=== PATIENT | female | born 1985 | race Caucasian/White ===

== ENCOUNTER 2016-07-29 08:48 | Emergency (ER) | payer SELFPAY ==
[~2016-07-29] VITALS: Ht 157.5 cm; Wt 62.5 kg
[2016-07-29 09:02] VITALS: Ht 157.5 cm; Wt 62.5 kg
[2016-07-29 09:49] LABS: URINE BLOOD (Dip) POC Trace-lysed (NEGATIVE)
--- NOTE | 2016-07-29 12:08 | RADRPT ---
PROCEDURE: US Pelvis CLINICAL INDICATION: left pelvic pain TECHNIQUE: Multiple sonographic images of the pelvis were obtained utilizing a transabdominal and endovaginal technique. The images were reviewed on a PACS workstation. COMPARISON: None. LMP: 07/11/2016 FINDINGS: The uterus measures 10.3 x 5.3 x 6.2 cm. The endometrial echo complex measures 9 mm in thickness. No discrete lesion is seen. The right ovary measures 3.5 x 2.1 x 2.2 cm. The left ovary measures 4.1 x 2.7 x 2.9 cm. There is no rmal vascular flow in both ovaries. There is a 2.3 cm complex cystic lesion in the left ovary with low level internal echoes which is li wilbert a hemorrhagic or corpus luteal cyst. No significant pelvic free fluid is identified. IMPRESSION: 2.3 cm complex cystic lesion in the left ovary is likely a hemorrhagic or corpus luteal cyst. Otherwise, unremarkable pelvic ultrasound. RPTAT: EE Physician Amena Date Time Electronically viewed and signed by Physician Amena on 07/29/2016 12:08 /
[2016-07-29] MEDS ORDERED: NAPR-260 PO (12:20)
--- NOTE | 2016-07-29 15:36 | ERD ---
DATE OF SERVICE: 07/29/2016 HISTORY OF PRESENT ILLNESS: The patient is a 30-year-old female complaining of dysuria and left-shelley ed flank pain. The patient states that she has had these symptoms for the last 3 days. She has bee n diagnosed with ovarian cyst in the past and she feels this may be associated, but is unsure. She has had no hematuria. Normal bowel movements, last bowel movement was this morning. No vomiting. Positive nausea. No fevers. Denies medication use and no blood in stool. She is not with any new sexual partners. No history of STDs. No vaginal discharge. MEDICAL HISTORY: Diverticulitis. ALLERGIES TO MEDICATIONS: DENIES. SURGICAL HISTORY: C-sections. SOCIAL HISTORY: Denies. REVIEW OF SYSTEMS: A 12-point review of systems was done. Refer to HPI for positives, all other sy stems negative. PHYSICAL EXAMINATION VITAL SIGNS: Temperature is 97.3, pulse 83, blood pressure is 120/73, respiratory rate 16, O2 satur ation 99% on room air. Pain intensity 9/10. GENERAL: The patient is well-appearing, well-nourished, no acute distress. HEENT: Atraumatic. Conjunctivae are pink. Pupils equal, round, and reactive to light. There is no s cleral icterus. Tympanic membranes clear bilaterally. Oropharynx clear. No nystagmus or photophobia . CHEST: Clear to auscultation bilaterally. There are no rales, wheezes or rhonchi. HEART: Regular rate and rhythm. No murmurs, clicks, rubs or gallops. No S3 or S4. ABDOMEN: Normoactive bowel sounds heard on auscultation. No distention, no organomegaly. The bozena ent has mild tenderness to palpation in the lower pelvis on the left side. BACK: No midline or flank tenderness. SKIN: There is no apparent rash or petechia. The skin is warm and dry. EMERGENCY ROOM COURSE: The patient had a urine dip checked in the ER, showed negative leukocytes, n egative nitrites, trace blood, negative ketones, negative glucose, negative protein. The patient lomax d a pelvic ultrasound which showed a 2.3 cm complex cystic lesion in the left ovary, likely hemorrha gic or corpus luteal cyst, otherwise unremarkable pelvic ultrasound. DIAGNOSIS: Ovarian cyst. MEDICAL DECISION MAKING: I have low suspicion for ovarian torsion. Low suspicion for tubo-ovarian abscess. Low suspicion for UTI. Low suspicion for abdominal emergency. The patient may be experie ncing pain secondary to ovarian cyst. DISCHARGE: The patient is discharged stable. The patient given a prescription for naproxen and zackery d to follow up with primary care within 1 to 2 days for reevaluation. The patient was told if sympt oms progress or worsen, to return to the ER. All other questions answered at time of discharge. [place] allison summary given at the time of departure. The patient understood and complied with plan. Dictated By: MARILIN MORSE for VERONIQUE CARABALLO/JAMSHID Conf#: [id number] DID#: [id number]
== END 2016-07-29 12:31 | disposition home or self-care (01) ==
LOC: FTE 08:48
DX: N83.202 Unspecified ovarian cyst, left side (principal); R10.2 Pelvic and perineal pain
CPT/HCPCS: 76830; 76856; 81003

== ENCOUNTER 2017-03-26 00:29 | Emergency (ER) | payer MEDICAID, OTHER ==
[~2017-03-26] VITALS: Ht 162.6 cm; Wt 64.0 kg
[~2017-03-26 00:29] MED LIST: ACET500C5 PO; NAPR-260 PO; ONDA4TAB8 PO
[2017-03-26 00:33] VITALS: Ht 162.6 cm; Wt 64.0 kg
[2017-03-26] MEDS ORDERED: ONDANSETRON (ODT) 4 MG TAB ODT STA (01:39)
[2017-03-26] MEDS ORDERED: HYDROCODONE/APAP (5/325) TAB PO ONE (02:00)
--- NOTE | 2017-03-26 04:34 | RADRPT ---
PROCEDURE: CT of the abdomen and pelvis without contrast CLINICAL INDICATION: Abdominal pain. TECHNIQUE: Spiral CT images through the abdomen and pelvis without the use of oral and without the use of intravenous contrast. The administered radiation dose is CTDI 6.55 and DLP 351.07. One or m ore of the following dose reduction techniques were used: automated exposure control, adjustment of the mA and/or kV according to patient size, or use of iterative reconstruction technique. COMPARISON: 01/12/2017 FINDINGS: The study is limited by lack of intravenous contrast. Lower thorax: Slight dependent atalectasis of the lung bases is seen.. Bilateral breast implants are seen. Liver: The liver is unremarkable in appearance. Biliary: The gallbladder is unremarkable.. No biliary ductal dilatation is seen. Pancreas: Stable mild diffuse prominence in size but no focal abnormality. No focal mass or inflamma tory process. Spleen: The spleen is unremarkable in appearance Adrenal glands: Unremarkable in appearance. No focal nodule.. Genitourinary: No hydronephrosis or renal calculi are seen.. The bladder is unremarkable in appearan ce.. Gastrointestinal Tract: There is no evidence for bowel obstruction, free air, or abscess. The appen ankit is unremarkable in appearance. Colonic diverticulosis without evidence of diverticulitis. Lymph nodes: No adenopathy is seen... Vascular structures: The aorta and mesenteric vessels are unremarkable.. Peritoneal cavity: Unremarkable mesentery and peritoneum.. No mass, edema, or ascites. Reproductive Organs: Unremarkable in appearance.. Musculoskeletal: No bony abnormality is seen.. IMPRESSION: Diverticulosis without evidence of diverticulitis.. RPTAT: HLBE Physician Bentley Date Time Electronically viewed and signed by Physician Bentley on 03/26/2017 04:34 LE/
[2017-03-26] MEDS ORDERED: ONDA4TAB14 PO (04:47)
[2017-03-26 04:57] VITALS: BP 133/90; PULSE 92; RESP 16
--- NOTE | 2017-03-26 05:41 | ERD ---
ER Documentation Chief Complaint Chief Complaint N/V, diarrhea, headache x 1 day HPI This is a 31-year-old female, with past medical history for diverticulitis, presenting to emergency department with nausea, vomiting, diarrhea and abdominal pain 7 days. Patient denies fevers or chills. Emesis is nonbloody and nonbilious. Patient states she has vomiting every time she tries to eat. Patient states she is having multiple loose bowel movements per day. Patient denies black or tarry stools. No melena. Patient has been taking Kaopectate as needed. No dysuria, hematuria, urinary frequency or urgency. ROS All systems reviewed and are negative except as per history of present illness. Medications Home Meds Active Scripts Ondansetron (Ondansetron Odt) 4 Mg Tab.rapdis, 4 MG PO Q6H Y for NAUSEA AND/OR VOMITING, #10 TAB Prov:MARIA R LOZANO NP 03/26/17 Ondansetron Hcl* (Zofran*) 4 Mg Tablet, 4 MG PO Q6H for NAUSEA AND/OR VOMITING, #30 TAB Prov:JOSE HUFF PA-C 01/12/17 Acetaminophen* (Tylophen*) 500 Mg Capsule, 1 CAP PO Q6H Y for PAIN AND OR ELEVATED TEMP, #30 CAP Prov:JOSE HUFF PA-C 01/12/17 Naproxen* (Naprosyn*) 500 Mg Tablet, 500 MG PO BID Y for PAIN AND/OR INFLAMMATION, #30 TAB Prov:BEHZAD MATHUR PA-C 07/29/16 Allergies Allergies: Coded Allergies: No Known Drug Allergies (Verified Allergy, Unknown, 01/11/17) PMhx/Soc History of Surgery: Yes (C SECTION x's 2, tummy tuck '13) Anesthesia Reaction: No Hx Neurological Disorder: No Hx Respiratory Disorders: No Hx Cardiac Disorders: No Hx Psychiatric Problems: No Hx Miscellaneous Medical Probl: Yes (diverticulosis since age 15, chronic narcotic use) Hx Alcohol Use: Yes (occasionally) Hx Substance Use: No Hx Tobacco Use: Yes Smoking Status: Former smoker Physical Exam Vitals Vital Signs Date Time Temp Pulse Resp B/P Pulse Ox O2 Delivery O2 Flow Rate FiO2 03/26/17 04:57 92 16 133/90 98 Room Air 03/26/17 00:33 98.3 88 20 136/81 0 Physical Exam Const: Alert Head: Atraumatic Eyes: Normal Conjunctiva ENT: Normal External Ears, Nose and Mouth. Neck: Full range of motion..~ No meningismus. Resp: Clear to auscultation bilaterally Cardio: Regular rate and rhythm, no murmurs Abd: Soft, non tender, non distended. Normal bowel sounds. No rebound tenderness. No tenderness at McBurney's point. Negative Caldera sign. Skin: No petechiae or rashes Back: No midline or flank tenderness Ext: No cyanosis, or edema Neur: Awake and alert Psych: Normal Mood and Affect Result Diagram: 03/26/1715403/26/17154 Results 24 hrs Laboratory Tests Test 03/26/17 01:55 03/26/17 02:10 White Blood Count 6.210^3/ul Red Blood Count 4.2210^6/ul Hemoglobin 12.1g/dl Hematocrit 37.9% Mean Corpuscular Volume 89.8fl Mean Corpuscular Hemoglobin 28.7pg Mean Corpuscular Hemoglobin Concent 31.9g/dl Red Cell Distribution Width 13.3% Platelet Count 86675^3/UL Mean Platelet Volume 9.2fl Neutrophils % 70.5% Lymphocytes % 20.6% Monocytes % 7.8% Eosinophils % 0.5% Basophils % 0.3% Nucleated Red Blood Cells % 0.0/100WBC Neutrophils # 4.410^3/ul Lymphocytes # 1.310^3/ul Monocytes # 0.510^3/ul Eosinophils # 0.010^3/ul Basophils # 0.010^3/ul Nucleated Red Blood Cells # 0.010^3/ul Sodium Level 143mmol/L Potassium Level 4.1mmol/L Chloride Level 103mmol/L Carbon Dioxide Level 26mmol/L Anion Gap 18 Blood Urea Nitrogen 11mg/dl Creatinine 0.68mg/dl Glucose Level 112mg/dl Calcium Level 9.9mg/dl Total Bilirubin 0.2mg/dl Direct Bilirubin 0.00mg/dl Indirect Bilirubin 0.2mg/dl Aspartate Amino Transf (AST/SGOT) 24IU/L Alanine Aminotransferase (ALT/SGPT) 33IU/L Alkaline Phosphatase 79IU/L Total Protein 8.2g/dl Albumin 5.2g/dl Globulin 3.00g/dl Albumin/Globulin Ratio 1.73 Lipase 66U/L Beta HCG, Quantitative < 2.4mIU/ml Bedside Urine pH (LAB) 7.0 Bedside Urine Protein (LAB) 1+ Bedside Urine Glucose (UA) Negative Bedside Urine Ketones (LAB) 1+ Bedside Urine Blood Negative Bedside Urine Nitrite (LAB) Negative Bedside Urine Leukocyte Esterase (L Trace Current Medications Medications (Trade) Dose Ordered Sig/Nat Route PRN Reason Start Time Stop Time Status Last Admin Dose Admin Acetaminophen/ Hydrocodone Bitart (Nebo (5/325)) 1 tab ONCE ONCE PO 03/26/17 02:00 03/26/17 02:01 DC 03/26/17 02:24 Ondansetron HCl (Zofran Odt) 4 mg ONCE STAT ODT 03/26/17 01:39 03/26/17 01:43 DC 03/26/17 02:24 Procedures/[place] [id number] Radiology Main Line: [phone] DIAGNOSTIC IMAGING REPORT Patient: TACO SEGURA : 1985 Age: 31 Sex: F MR #: [id number] DOS: 03/26/17 0139 Ordering MD: MARIA R HUNT NP Location: [facility] Room/Bed: PROCEDURE: CT of the abdomen and pelvis without contrast CLINICAL INDICATION: Abdominal pain. TECHNIQUE: Spiral CT images through the abdomen and pelvis without the use of oral and without the use of intravenous contrast. The administered radiation dose is CTDI 6.55 and DLP 351.07. One or more of the following dose reduction techniques were used: automated exposure control, adjustment of the mA and/or kV according to patient size, or use of iterative reconstruction technique. COMPARISON: 01/12/2017 FINDINGS: The study is limited by lack of intravenous contrast. Lower thorax: Slight dependent atalectasis of the lung bases is seen.. Bilateral breast implants are seen. Liver: The liver is unremarkable in appearance. Biliary: The gallbladder is unremarkable.. No biliary ductal dilatation is seen. Pancreas: Stable mild diffuse prominence in size but no focal abnormality. No focal mass or inflammatory process. Spleen: The spleen is unremarkable in appearance Adrenal glands: Unremarkable in appearance. No focal nodule.. Genitourinary: No hydronephrosis or renal calculi are seen.. The bladder is unremarkable in appearance.. Gastrointestinal Tract: There is no evidence for bowel obstruction, free air, or abscess. The appendix is unremarkable in appearance. Colonic diverticulosis without evidence of diverticulitis. Lymph nodes: No adenopathy is seen... Vascular structures: The aorta and mesenteric vessels are unremarkable.. Peritoneal cavity: Unremarkable mesentery and peritoneum.. No mass, edema, or ascites. Reproductive Organs: Unremarkable in appearance.. Musculoskeletal: No bony abnormality is seen.. IMPRESSION: Diverticulosis without evidence of diverticulitis. MDM: This is a 31-year-old female presenting to emergency department with nausea , vomiting, diarrhea and headache 7 days. Labs and urine collected per staff physician. CBC shows no significant anemia or infection. CMP shows no significant electrolyte imbalance. Lipase is normal. Liver enzymes are normal. Bilirubin is normal. Glucose is normal. Creatinine and BUN are normal. Beta-hCG is negative. Urine dip shows trace leukocyte esterase, 1+ ketones and 1+ protein. CT abdomen and pelvis reviewed by radiologist as diverticulosis without evidence of diverticulitis. Upon reassessment, patient appears alert and stable. Patient appears in no acute distress. Patient is nontoxic-appearing. Vital signs are stable. Differential diagnosis includes but not limited to acute appendicitis, diverticulitis, diverticulosis, bowel obstruction, constipation, infectious colitis, irritable bowel syndrome, inflammatory bowel disease, viral gastroenteritis, abdominal aortic aneurysm, food intolerance, celiac disease, UTI, pyelonephritis, nephrolithiasis, acute urinary retention or colorectal cancer. I doubt any emergent conditions such as appendicitis, diverticulitis, bowel obstruction, abdominal aortic aneurysm at this time due to normal vital signs and normal lab results. Patient is appropriate for outpatient management. Patient given prescription for Zofran. Instructed patient to follow-up with primary care provider in the next 2-3 days for reassessment and additional management. Return to ED for any high fever, chest pain, difficulty breathing, shortness breath, wheezing, vomiting, diarrhea, abdominal pain or any new or worsening symptoms. Patient verbalizes understanding. All questions answered at discharge. Disclaimer: Inadvertent spelling and grammatical errors are likely due to EHR/ dictation software use and do not reflect on the overall quality of patient care. Also, please note that the electronic time recorded on this note does not necessarily reflect the actual time of the patient encounter. Departure Diagnosis: Primary Impression: Diverticulosis Diverticulosis site: unspecified location Condition: Stable Patient Instructions: Diverticulosis Referrals: [facility] YOU HAVE RECEIVED A MEDICAL SCREENING EXAM AND THE RESULTS INDICATE THAT YOU DO NOT HAVE A CONDITION THAT REQUIRES URGENT TREATMENT IN THE EMERGENCY DEPARTMENT. FURTHER EVALUATION AND TREATMENT OF YOUR CONDITION CAN WAIT UNTIL YOU ARE SEEN IN YOUR DOCTORS OFFICE WITHIN THE NEXT 1-2 DAYS. IT IS YOUR RESPONSIBILITY TO MAKE AN APPOINTMENT FOR FOLOW-UP CARE. IF YOU HAVE A PRIMARY DOCTOR --you should call your primary doctor and schedule an appointment IF YOU DO NOT HAVE A PRIMARY DOCTOR YOU CAN CALL OUR PHYSICIAN REFERRAL HOTLINE AT IF YOU CAN NOT AFFORD TO SEE A PHYSICIAN YOU CAN CHOSE FROM THE FOLLOWING [facility] [address] [facility]. [facility] [address] [facility] [facility] [address] [facility] [address] [facility] [address] [facility]. [facility] [address] [facility]. [facility] YOU HAVE RECEIVED A MEDICAL SCREENING EXAM AND THE RESULTS INDICATE THAT YOU DO NOT HAVE A CONDITION THAT REQUIRES URGENT TREATMENT IN THE EMERGENCY DEPARTMENT. FURTHER EVALUATION AND TREATMENT OF YOUR CONDITION CAN WAIT UNTIL YOU ARE SEEN IN YOUR DOCTORS OFFICE WITHIN THE NEXT 1-2 DAYS. IT IS YOUR RESPONSIBILITY TO MAKE AN APPOINTMENT FOR FOLOW-UP CARE. IF YOU HAVE A PRIMARY DOCTOR --you should call your primary doctor and schedule and appointment IF YOU DO NOT HAVE A PRIMARY DOCTOR YOU CAN CALL OUR PHYSICIAN REFERRAL HOTLINE AT . IF YOU CAN NOT AFFORD TO SEE A PHYSICIAN YOU CAN CHOSE FROM THE FOLLOWING [facility] INSTITUTIONS: [facility] [address] [place] [address] [facility] [address] [place] [address] [facility] + [facility] [address] [place] [address] Additional Instructions: Call your primary care doctor TOMORROW for an appointment during the next 2-3 days.See the doctor sooner or return here if your condition worsens before your appointment time. Return to ED for any high fever, chest pain, difficulty breathing, shortness breath, wheezing, vomiting, diarrhea, abdominal pain or any new or worsening symptoms. MARIA R LOZANO NP Mar 26, 2017 05:41
--- NOTE | 2017-03-26 05:41 | ERD ---
ER Documentation Chief Complaint Chief Complaint N/V, diarrhea, headache x 1 day HPI This is a 31-year-old female, with past medical history for diverticulitis, presenting to emergency department with nausea, vomiting, diarrhea and abdominal pain 7 days. Patient denies fevers or chills. Emesis is nonbloody and nonbilious. Patient states she has vomiting every time she tries to eat. Patient states she is having multiple loose bowel movements per day. Patient denies black or tarry stools. No melena. Patient has been taking Kaopectate as needed. No dysuria, hematuria, urinary frequency or urgency. ROS All systems reviewed and are negative except as per history of present illness. Medications Home Meds Active Scripts Ondansetron (Ondansetron Odt) 4 Mg Tab.rapdis, 4 MG PO Q6H Y for NAUSEA AND/OR VOMITING, #10 TAB Prov:MARIA R LOZANO NP 03/26/17 Ondansetron Hcl* (Zofran*) 4 Mg Tablet, 4 MG PO Q6H for NAUSEA AND/OR VOMITING, #30 TAB Prov:JOSE HUFF PA-C 01/12/17 Acetaminophen* (Tylophen*) 500 Mg Capsule, 1 CAP PO Q6H Y for PAIN AND OR ELEVATED TEMP, #30 CAP Prov:JOSE HUFF PA-C 01/12/17 Naproxen* (Naprosyn*) 500 Mg Tablet, 500 MG PO BID Y for PAIN AND/OR INFLAMMATION, #30 TAB Prov:BEHZAD MATHUR PA-C 07/29/16 Allergies Allergies: Coded Allergies: No Known Drug Allergies (Verified Allergy, Unknown, 01/11/17) PMhx/Soc History of Surgery: Yes (C SECTION x's 2, tummy tuck '13) Anesthesia Reaction: No Hx Neurological Disorder: No Hx Respiratory Disorders: No Hx Cardiac Disorders: No Hx Psychiatric Problems: No Hx Miscellaneous Medical Probl: Yes (diverticulosis since age 15, chronic narcotic use) Hx Alcohol Use: Yes (occasionally) Hx Substance Use: No Hx Tobacco Use: Yes Smoking Status: Former smoker Physical Exam Vitals Vital Signs Date Time Temp Pulse Resp B/P Pulse Ox O2 Delivery O2 Flow Rate FiO2 03/26/17 04:57 92 16 133/90 98 Room Air 03/26/17 00:33 98.3 88 20 136/81 0 Physical Exam Const: Alert Head: Atraumatic Eyes: Normal Conjunctiva ENT: Normal External Ears, Nose and Mouth. Neck: Full range of motion..~ No meningismus. Resp: Clear to auscultation bilaterally Cardio: Regular rate and rhythm, no murmurs Abd: Soft, non tender, non distended. Normal bowel sounds. No rebound tenderness. No tenderness at McBurney's point. Negative Caldera sign. Skin: No petechiae or rashes Back: No midline or flank tenderness Ext: No cyanosis, or edema Neur: Awake and alert Psych: Normal Mood and Affect Result Diagram: 03/26/1715403/26/17154 Results 24 hrs Laboratory Tests Test 03/26/17 01:55 03/26/17 02:10 White Blood Count 6.210^3/ul Red Blood Count 4.2210^6/ul Hemoglobin 12.1g/dl Hematocrit 37.9% Mean Corpuscular Volume 89.8fl Mean Corpuscular Hemoglobin 28.7pg Mean Corpuscular Hemoglobin Concent 31.9g/dl Red Cell Distribution Width 13.3% Platelet Count 49780^3/UL Mean Platelet Volume 9.2fl Neutrophils % 70.5% Lymphocytes % 20.6% Monocytes % 7.8% Eosinophils % 0.5% Basophils % 0.3% Nucleated Red Blood Cells % 0.0/100WBC Neutrophils # 4.410^3/ul Lymphocytes # 1.310^3/ul Monocytes # 0.510^3/ul Eosinophils # 0.010^3/ul Basophils # 0.010^3/ul Nucleated Red Blood Cells # 0.010^3/ul Sodium Level 143mmol/L Potassium Level 4.1mmol/L Chloride Level 103mmol/L Carbon Dioxide Level 26mmol/L Anion Gap 18 Blood Urea Nitrogen 11mg/dl Creatinine 0.68mg/dl Glucose Level 112mg/dl Calcium Level 9.9mg/dl Total Bilirubin 0.2mg/dl Direct Bilirubin 0.00mg/dl Indirect Bilirubin 0.2mg/dl Aspartate Amino Transf (AST/SGOT) 24IU/L Alanine Aminotransferase (ALT/SGPT) 33IU/L Alkaline Phosphatase 79IU/L Total Protein 8.2g/dl Albumin 5.2g/dl Globulin 3.00g/dl Albumin/Globulin Ratio 1.73 Lipase 66U/L Beta HCG, Quantitative < 2.4mIU/ml Bedside Urine pH (LAB) 7.0 Bedside Urine Protein (LAB) 1+ Bedside Urine Glucose (UA) Negative Bedside Urine Ketones (LAB) 1+ Bedside Urine Blood Negative Bedside Urine Nitrite (LAB) Negative Bedside Urine Leukocyte Esterase (L Trace Current Medications Medications (Trade) Dose Ordered Sig/Nat Route PRN Reason Start Time Stop Time Status Last Admin Dose Admin Acetaminophen/ Hydrocodone Bitart (Norman (5/325)) 1 tab ONCE ONCE PO 03/26/17 02:00 03/26/17 02:01 DC 03/26/17 02:24 Ondansetron HCl (Zofran Odt) 4 mg ONCE STAT ODT 03/26/17 01:39 03/26/17 01:43 DC 03/26/17 02:24 Procedures/[place] [id number] Radiology Main Line: [phone] DIAGNOSTIC IMAGING REPORT Patient: TACO SEGURA : 1985 Age: 31 Sex: F MR #: [id number] DOS: 03/26/17 0139 Ordering MD: MARIA R HUNT NP Location: [facility] Room/Bed: PROCEDURE: CT of the abdomen and pelvis without contrast CLINICAL INDICATION: Abdominal pain. TECHNIQUE: Spiral CT images through the abdomen and pelvis without the use of oral and without the use of intravenous contrast. The administered radiation dose is CTDI 6.55 and DLP 351.07. One or more of the following dose reduction techniques were used: automated exposure control, adjustment of the mA and/or kV according to patient size, or use of iterative reconstruction technique. COMPARISON: 01/12/2017 FINDINGS: The study is limited by lack of intravenous contrast. Lower thorax: Slight dependent atalectasis of the lung bases is seen.. Bilateral breast implants are seen. Liver: The liver is unremarkable in appearance. Biliary: The gallbladder is unremarkable.. No biliary ductal dilatation is seen. Pancreas: Stable mild diffuse prominence in size but no focal abnormality. No focal mass or inflammatory process. Spleen: The spleen is unremarkable in appearance Adrenal glands: Unremarkable in appearance. No focal nodule.. Genitourinary: No hydronephrosis or renal calculi are seen.. The bladder is unremarkable in appearance.. Gastrointestinal Tract: There is no evidence for bowel obstruction, free air, or abscess. The appendix is unremarkable in appearance. Colonic diverticulosis without evidence of diverticulitis. Lymph nodes: No adenopathy is seen... Vascular structures: The aorta and mesenteric vessels are unremarkable.. Peritoneal cavity: Unremarkable mesentery and peritoneum.. No mass, edema, or ascites. Reproductive Organs: Unremarkable in appearance.. Musculoskeletal: No bony abnormality is seen.. IMPRESSION: Diverticulosis without evidence of diverticulitis. MDM: This is a 31-year-old female presenting to emergency department with nausea , vomiting, diarrhea and headache 7 days. Labs and urine collected per bar staff. CBC shows no significant anemia or infection. CMP shows no significant electrolyte imbalance. Lipase is normal. Liver enzymes are normal. Bilirubin is normal. Glucose is normal. Creatinine and BUN are normal. Beta-hCG is negative. Urine dip shows trace leukocyte esterase, 1+ ketones and 1+ protein. CT abdomen and pelvis reviewed by radiologist as diverticulosis without evidence of diverticulitis. Upon reassessment, patient appears alert and stable. Patient appears in no acute distress. Patient is nontoxic-appearing. Vital signs are stable. Differential diagnosis includes but not limited to acute appendicitis, diverticulitis, diverticulosis, bowel obstruction, constipation, infectious colitis, irritable bowel syndrome, inflammatory bowel disease, viral gastroenteritis, abdominal aortic aneurysm, food intolerance, celiac disease, UTI, pyelonephritis, nephrolithiasis, acute urinary retention or colorectal cancer. I doubt any emergent conditions such as appendicitis, diverticulitis, bowel obstruction, abdominal aortic aneurysm at this time due to normal vital signs and normal lab results. Patient is appropriate for outpatient management. Patient given prescription for Zofran. Instructed patient to follow-up with primary care provider in the next 2-3 days for reassessment and additional management. Return to ED for any high fever, chest pain, difficulty breathing, shortness breath, wheezing, vomiting, diarrhea, abdominal pain or any new or worsening symptoms. Patient verbalizes understanding. All questions answered at discharge. Disclaimer: Inadvertent spelling and grammatical errors are likely due to EHR/ dictation software use and do not reflect on the overall quality of patient care. Also, please note that the electronic time recorded on this note does not necessarily reflect the actual time of the patient encounter. Departure Diagnosis: Primary Impression: Diverticulosis Diverticulosis site: unspecified location Condition: Stable Patient Instructions: Diverticulosis Referrals: [facility] YOU HAVE RECEIVED A MEDICAL SCREENING EXAM AND THE RESULTS INDICATE THAT YOU DO NOT HAVE A CONDITION THAT REQUIRES URGENT TREATMENT IN THE EMERGENCY DEPARTMENT. FURTHER EVALUATION AND TREATMENT OF YOUR CONDITION CAN WAIT UNTIL YOU ARE SEEN IN YOUR DOCTORS OFFICE WITHIN THE NEXT 1-2 DAYS. IT IS YOUR RESPONSIBILITY TO MAKE AN APPOINTMENT FOR FOLOW-UP CARE. IF YOU HAVE A PRIMARY DOCTOR --you should call your primary doctor and schedule an appointment IF YOU DO NOT HAVE A PRIMARY DOCTOR YOU CAN CALL OUR PHYSICIAN REFERRAL HOTLINE AT IF YOU CAN NOT AFFORD TO SEE A PHYSICIAN YOU CAN CHOSE FROM THE FOLLOWING [facility] [address] [facility]. [facility] [address] [facility]. [facility] [address] [facility] [facility] [address] [facility] [address] [facility]. [facility] [address] [facility] [facility] YOU HAVE RECEIVED A MEDICAL SCREENING EXAM AND THE RESULTS INDICATE THAT YOU DO NOT HAVE A CONDITION THAT REQUIRES URGENT TREATMENT IN THE EMERGENCY DEPARTMENT. FURTHER EVALUATION AND TREATMENT OF YOUR CONDITION CAN WAIT UNTIL YOU ARE SEEN IN YOUR DOCTORS OFFICE WITHIN THE NEXT 1-2 DAYS. IT IS YOUR RESPONSIBILITY TO MAKE AN APPOINTMENT FOR FOLOW-UP CARE. IF YOU HAVE A PRIMARY DOCTOR --you should call your primary doctor and schedule and appointment IF YOU DO NOT HAVE A PRIMARY DOCTOR YOU CAN CALL OUR PHYSICIAN REFERRAL HOTLINE AT . IF YOU CAN NOT AFFORD TO SEE A PHYSICIAN YOU CAN CHOSE FROM THE FOLLOWING [facility] INSTITUTIONS: [facility] [address] [place] [address] [facility] [address] [place] [address] [facility] + [facility] [address] [place] [address] Additional Instructions: Call your primary care doctor TOMORROW for an appointment during the next 2-3 days.See the doctor sooner or return here if your condition worsens before your appointment time. Return to ED for any high fever, chest pain, difficulty breathing, shortness breath, wheezing, vomiting, diarrhea, abdominal pain or any new or worsening symptoms. MARIA R LOZANO NP Mar 26, 2017 05:41
--- NOTE | 2017-03-26 05:41 | ERD ---
ER Documentation Chief Complaint Chief Complaint N/V, diarrhea, headache x 1 day HPI This is a 31-year-old female, with past medical history for diverticulitis, presenting to emergency department with nausea, vomiting, diarrhea and abdominal pain 7 days. Patient denies fevers or chills. Emesis is nonbloody and nonbilious. Patient states she has vomiting every time she tries to eat. Patient states she is having multiple loose bowel movements per day. Patient denies black or tarry stools. No melena. Patient has been taking Kaopectate as needed. No dysuria, hematuria, urinary frequency or urgency. ROS All systems reviewed and are negative except as per history of present illness. Medications Home Meds Active Scripts Ondansetron (Ondansetron Odt) 4 Mg Tab.rapdis, 4 MG PO Q6H Y for NAUSEA AND/OR VOMITING, #10 TAB Prov:MARIA R LOZANO NP 03/26/17 Ondansetron Hcl* (Zofran*) 4 Mg Tablet, 4 MG PO Q6H for NAUSEA AND/OR VOMITING, #30 TAB Prov:JOSE HUFF PA-C 01/12/17 Acetaminophen* (Tylophen*) 500 Mg Capsule, 1 CAP PO Q6H Y for PAIN AND OR ELEVATED TEMP, #30 CAP Prov:JOSE HUFF PA-C 01/12/17 Naproxen* (Naprosyn*) 500 Mg Tablet, 500 MG PO BID Y for PAIN AND/OR INFLAMMATION, #30 TAB Prov:BEHZAD MATHUR PA-C 07/29/16 Allergies Allergies: Coded Allergies: No Known Drug Allergies (Verified Allergy, Unknown, 01/11/17) PMhx/Soc History of Surgery: Yes (C SECTION x's 2, tummy tuck '13) Anesthesia Reaction: No Hx Neurological Disorder: No Hx Respiratory Disorders: No Hx Cardiac Disorders: No Hx Psychiatric Problems: No Hx Miscellaneous Medical Probl: Yes (diverticulosis since age 15, chronic narcotic use) Hx Alcohol Use: Yes (occasionally) Hx Substance Use: No Hx Tobacco Use: Yes Smoking Status: Former smoker Physical Exam Vitals Vital Signs Date Time Temp Pulse Resp B/P Pulse Ox O2 Delivery O2 Flow Rate FiO2 03/26/17 04:57 92 16 133/90 98 Room Air 03/26/17 00:33 98.3 88 20 136/81 0 Physical Exam Const: Alert Head: Atraumatic Eyes: Normal Conjunctiva ENT: Normal External Ears, Nose and Mouth. Neck: Full range of motion..~ No meningismus. Resp: Clear to auscultation bilaterally Cardio: Regular rate and rhythm, no murmurs Abd: Soft, non tender, non distended. Normal bowel sounds. No rebound tenderness. No tenderness at McBurney's point. Negative Caldera sign. Skin: No petechiae or rashes Back: No midline or flank tenderness Ext: No cyanosis, or edema Neur: Awake and alert Psych: Normal Mood and Affect Result Diagram: 03/26/1715403/26/17154 Results 24 hrs Laboratory Tests Test 03/26/17 01:55 03/26/17 02:10 White Blood Count 6.210^3/ul Red Blood Count 4.2210^6/ul Hemoglobin 12.1g/dl Hematocrit 37.9% Mean Corpuscular Volume 89.8fl Mean Corpuscular Hemoglobin 28.7pg Mean Corpuscular Hemoglobin Concent 31.9g/dl Red Cell Distribution Width 13.3% Platelet Count 35274^3/UL Mean Platelet Volume 9.2fl Neutrophils % 70.5% Lymphocytes % 20.6% Monocytes % 7.8% Eosinophils % 0.5% Basophils % 0.3% Nucleated Red Blood Cells % 0.0/100WBC Neutrophils # 4.410^3/ul Lymphocytes # 1.310^3/ul Monocytes # 0.510^3/ul Eosinophils # 0.010^3/ul Basophils # 0.010^3/ul Nucleated Red Blood Cells # 0.010^3/ul Sodium Level 143mmol/L Potassium Level 4.1mmol/L Chloride Level 103mmol/L Carbon Dioxide Level 26mmol/L Anion Gap 18 Blood Urea Nitrogen 11mg/dl Creatinine 0.68mg/dl Glucose Level 112mg/dl Calcium Level 9.9mg/dl Total Bilirubin 0.2mg/dl Direct Bilirubin 0.00mg/dl Indirect Bilirubin 0.2mg/dl Aspartate Amino Transf (AST/SGOT) 24IU/L Alanine Aminotransferase (ALT/SGPT) 33IU/L Alkaline Phosphatase 79IU/L Total Protein 8.2g/dl Albumin 5.2g/dl Globulin 3.00g/dl Albumin/Globulin Ratio 1.73 Lipase 66U/L Beta HCG, Quantitative < 2.4mIU/ml Bedside Urine pH (LAB) 7.0 Bedside Urine Protein (LAB) 1+ Bedside Urine Glucose (UA) Negative Bedside Urine Ketones (LAB) 1+ Bedside Urine Blood Negative Bedside Urine Nitrite (LAB) Negative Bedside Urine Leukocyte Esterase (L Trace Current Medications Medications (Trade) Dose Ordered Sig/Nat Route PRN Reason Start Time Stop Time Status Last Admin Dose Admin Acetaminophen/ Hydrocodone Bitart (Daniels (5/325)) 1 tab ONCE ONCE PO 03/26/17 02:00 03/26/17 02:01 DC 03/26/17 02:24 Ondansetron HCl (Zofran Odt) 4 mg ONCE STAT ODT 03/26/17 01:39 03/26/17 01:43 DC 03/26/17 02:24 Procedures/[place] [address] Radiology Main Line: [phone] DIAGNOSTIC IMAGING REPORT Patient: TACO SEGURA : 1985 Age: 31 Sex: F MR #: [id number] DOS: 03/26/17 0139 Ordering MD: MARIA R HUNT NP Location: [facility] Room/Bed: PROCEDURE: CT of the abdomen and pelvis without contrast CLINICAL INDICATION: Abdominal pain. TECHNIQUE: Spiral CT images through the abdomen and pelvis without the use of oral and without the use of intravenous contrast. The administered radiation dose is CTDI 6.55 and DLP 351.07. One or more of the following dose reduction techniques were used: automated exposure control, adjustment of the mA and/or kV according to patient size, or use of iterative reconstruction technique. COMPARISON: 01/12/2017 FINDINGS: The study is limited by lack of intravenous contrast. Lower thorax: Slight dependent atalectasis of the lung bases is seen.. Bilateral breast implants are seen. Liver: The liver is unremarkable in appearance. Biliary: The gallbladder is unremarkable.. No biliary ductal dilatation is seen. Pancreas: Stable mild diffuse prominence in size but no focal abnormality. No focal mass or inflammatory process. Spleen: The spleen is unremarkable in appearance Adrenal glands: Unremarkable in appearance. No focal nodule.. Genitourinary: No hydronephrosis or renal calculi are seen.. The bladder is unremarkable in appearance.. Gastrointestinal Tract: There is no evidence for bowel obstruction, free air, or abscess. The appendix is unremarkable in appearance. Colonic diverticulosis without evidence of diverticulitis. Lymph nodes: No adenopathy is seen... Vascular structures: The aorta and mesenteric vessels are unremarkable.. Peritoneal cavity: Unremarkable mesentery and peritoneum.. No mass, edema, or ascites. Reproductive Organs: Unremarkable in appearance.. Musculoskeletal: No bony abnormality is seen.. IMPRESSION: Diverticulosis without evidence of diverticulitis. MDM: This is a 31-year-old female presenting to emergency department with nausea , vomiting, diarrhea and headache 7 days. Labs and urine collected per staffing branch manager. CBC shows no significant anemia or infection. CMP shows no significant electrolyte imbalance. Lipase is normal. Liver enzymes are normal. Bilirubin is normal. Glucose is normal. Creatinine and BUN are normal. Beta-hCG is negative. Urine dip shows trace leukocyte esterase, 1+ ketones and 1+ protein. CT abdomen and pelvis reviewed by radiologist as diverticulosis without evidence of diverticulitis. Upon reassessment, patient appears alert and stable. Patient appears in no acute distress. Patient is nontoxic-appearing. Vital signs are stable. Differential diagnosis includes but not limited to acute appendicitis, diverticulitis, diverticulosis, bowel obstruction, constipation, infectious colitis, irritable bowel syndrome, inflammatory bowel disease, viral gastroenteritis, abdominal aortic aneurysm, food intolerance, celiac disease, UTI, pyelonephritis, nephrolithiasis, acute urinary retention or colorectal cancer. I doubt any emergent conditions such as appendicitis, diverticulitis, bowel obstruction, abdominal aortic aneurysm at this time due to normal vital signs and normal lab results. Patient is appropriate for outpatient management. Patient given prescription for Zofran. Instructed patient to follow-up with primary care provider in the next 2-3 days for reassessment and additional management. Return to ED for any high fever, chest pain, difficulty breathing, shortness breath, wheezing, vomiting, diarrhea, abdominal pain or any new or worsening symptoms. Patient verbalizes understanding. All questions answered at discharge. Disclaimer: Inadvertent spelling and grammatical errors are likely due to EHR/ dictation software use and do not reflect on the overall quality of patient care. Also, please note that the electronic time recorded on this note does not necessarily reflect the actual time of the patient encounter. Departure Diagnosis: Primary Impression: Diverticulosis Diverticulosis site: unspecified location Condition: Stable Patient Instructions: Diverticulosis Referrals: [facility] YOU HAVE RECEIVED A MEDICAL SCREENING EXAM AND THE RESULTS INDICATE THAT YOU DO NOT HAVE A CONDITION THAT REQUIRES URGENT TREATMENT IN THE EMERGENCY DEPARTMENT. FURTHER EVALUATION AND TREATMENT OF YOUR CONDITION CAN WAIT UNTIL YOU ARE SEEN IN YOUR DOCTORS OFFICE WITHIN THE NEXT 1-2 DAYS. IT IS YOUR RESPONSIBILITY TO MAKE AN APPOINTMENT FOR FOLOW-UP CARE. IF YOU HAVE A PRIMARY DOCTOR --you should call your primary doctor and schedule an appointment IF YOU DO NOT HAVE A PRIMARY DOCTOR YOU CAN CALL OUR PHYSICIAN REFERRAL HOTLINE AT IF YOU CAN NOT AFFORD TO SEE A PHYSICIAN YOU CAN CHOSE FROM THE FOLLOWING [facility] [address] [facility]. [facility] [address] [facility] [facility] [address] [facility] [address] [facility] [address] [facility]. [facility] [address] [facility]. [facility] YOU HAVE RECEIVED A MEDICAL SCREENING EXAM AND THE RESULTS INDICATE THAT YOU DO NOT HAVE A CONDITION THAT REQUIRES URGENT TREATMENT IN THE EMERGENCY DEPARTMENT. FURTHER EVALUATION AND TREATMENT OF YOUR CONDITION CAN WAIT UNTIL YOU ARE SEEN IN YOUR DOCTORS OFFICE WITHIN THE NEXT 1-2 DAYS. IT IS YOUR RESPONSIBILITY TO MAKE AN APPOINTMENT FOR FOLOW-UP CARE. IF YOU HAVE A PRIMARY DOCTOR --you should call your primary doctor and schedule and appointment IF YOU DO NOT HAVE A PRIMARY DOCTOR YOU CAN CALL OUR PHYSICIAN REFERRAL HOTLINE AT . IF YOU CAN NOT AFFORD TO SEE A PHYSICIAN YOU CAN CHOSE FROM THE FOLLOWING [facility] INSTITUTIONS: [facility] [address] [place] [address] [facility] [address] [place] [address] [facility] + [facility] [address] [place] [address] Additional Instructions: Call your primary care doctor TOMORROW for an appointment during the next 2-3 days.See the doctor sooner or return here if your condition worsens before your appointment time. Return to ED for any high fever, chest pain, difficulty breathing, shortness breath, wheezing, vomiting, diarrhea, abdominal pain or any new or worsening symptoms. MARIA R LOZANO NP Mar 26, 2017 05:41
== END 2017-03-26 04:59 | disposition home or self-care (01) ==
LOC: FTE 00:29
DX: K57.30 Diverticulosis of large intestine without perforation or abscess without bleeding (principal); Z87.891 Personal history of nicotine dependence
CPT/HCPCS: 36415; 74176; 80053; 81003; 83690; 84702; 85025; Z7502; Z7610

== ENCOUNTER 2018-04-12 03:24 | Inpatient (IN) | END 2018-04-14 15:45 | disposition other institution (70) | DRG 918 ==